=== PATIENT | male | born 1985 | race African-American/Black ===

== ENCOUNTER 2018-11-03 08:19 | Emergency (ER) | payer SELFPAY ==
[~2018-11-03] VITALS: Ht 180.3 cm; Wt 86.4 kg
[2018-11-03] MEDS ORDERED: KETOROLAC TROMETHAMINE 30 MG/ML VIAL IM ONE (09:30)
[2018-11-03] MEDS ORDERED: PENICILLIN V POTASSIUM 500 MG TABLET PO ONE (09:30)
[2018-11-03] MEDS ORDERED: TraMADol HCL 50 MG TABLET PO ONE (09:30)
[2018-11-03 10:45] VITALS: BP 130/87
[2018-11-03] MEDS ORDERED: HYDROCODONE/ACETAMINOPHEN 5-325 MG TABLET PO ONE (10:45)
== END 2018-11-03 10:48 | disposition home or self-care (01) ==
LOC: EMS 08:24
DX: K04.7 Periapical abscess without sinus (principal); F17.210 Nicotine dependence, cigarettes, uncomplicated
CPT/HCPCS: 96372; 99283; 99406; J1885